=== PATIENT | female | born 1970 | race Asian ===

== ENCOUNTER 2018-04-08 12:26 | Emergency (ER) | payer OTHER ==
[~2018-04-08] VITALS: Ht 160 cm; Wt 61.3 kg
[2018-04-08 13:30] VITALS: BP 120/73
== END 2018-04-08 13:57 | disposition home or self-care (01) ==
LOC: EMS 12:27
DX: M54.5 Low back pain (principal); V49.9XXA Car occupant (driver) (passenger) injured in unspecified traffic accident, initial encounter; Y93.89 Activity, other specified; Y92.89 Other specified places as the place of occurrence of the external cause; Y99.8 Other external cause status